=== PATIENT | male | born 1970 | race Caucasian/White ===

== ENCOUNTER 2017-02-05 13:17 | Emergency (ER) | payer BC ==
[~2017-02-05 13:17] MED LIST: BACTRIM DS1 TAB PO; BENADRYL25 MG; CLARITIN-D1 TAB.SR .; COLACE100 MG PO; COMPETE1 EACH PO; DEXAMETHASONE2 MG PO; ESZOPICLONE2 MG PO; KEPPRA500 MG PO; LAMICTAL100 M2 PO; PEPCID20 MG PO; PRAMIPEXOLE E0.75 MG PO; TEMODAR100 MG PO; TEMODAR140 MG PO; TROKENDI XR50 MG PO; WAL-PHED30 MG; ZANTAC150 MG PO; ZOFRAN8 MG PO
[2017-02-05] MEDS ORDERED: GINSENG100 M2 PO (13:49)
[2017-02-05] MEDS ORDERED: LAMICTAL200 M2 PO (14:01)
[2017-02-05] MEDS ORDERED: MOBIC7.5 M2 PO (14:01)
[2017-02-05 14:47] LABS: BASO % 0.7 % (0-2); EOS % 5.7 % (0-7); EOSINOPHIL ABSOLUTE COUNT 0.2 tho/cmm (0.0-0.7); HCT-HEMATOCRIT 32.5 % (36.0-53.5); IMMATURE GRANULOCYTES ABSOLUTE 0.02 tho/cmm (0-0.03); IMMATURE GRANULOCYTES PERCENT 0.5 % (0-0.3); LYMPH % 16.6 % (20-45); LYMPH ABSOLUTE COUNT 0.7 tho/cmm (0.8-4.5); MCH (MEAN CORPUSCULAR HGB) 30.3 pg (28.0-32.0); MCHC MEAN CORPUSCULAR HGB CONC 33.8 % (32.0-36.0); MCV (MEAN CELL VOLUME) 89.5 fl (82.0-96.0); MEAN PLATELET VOLUME 8.2 cmc (9.4-12.4); MONO % 8.5 % (0-12); MONOCYTE ABSOLUTE COUNT 0.4 tho/cmm (0.0-1.2); NEUTROPHIL ABSOLUTE COUNT 2.9 tho/cmm (1.6-8.0); NEUTROPHIL-AUTOMATED 2.9 tho/cmm (1.6-8.0); PLATELET COUNT 252 tho/cmm (150-450); RED BLOOD COUNT 3.63 mil/cmm (4.40-5.70); RED CELL DISTRIBUTION WIDTH 13.8 % (12.4-16.4); WHITE BLOOD COUNT 4.2 tho/cmm (4.0-10.0)
[2017-02-05 15:06] LABS: ALB/GLOB RATIO 1.1 (0.8-2.0); ALBUMIN 3.9 g/dl (3.5-5.0); ALKALINE PHOSPHATASE 79 U/L (33-138); ALT/SGPT 31 U/L (12-78); ANION GAP 10 mmol/L (0-20); AST/SGOT 19 U/L (10-40); BILIRUBIN,TOTAL 0.3 mg/dl (0.0-1.5); BLOOD UREA NITROGEN 16 mg/dl (6-24); CARBON DIOXIDE-VENOUS 28 mmol/L (22-32); CHLORIDE 111 mmol/l (96-110); CREATININE 1.11 mg/dl (0.60-1.30); GLUCOSE 93 mg/dL (70-110); POTASSIUM 4.3 mmol/L (3.7-5.1); SODIUM 145 mmol/L (135-145); eGFR VALUE FOR BLACK >90 mL/Min
[2017-02-05 15:06] LABS: URINE BILIRUBIN NEGATIVE (NEG); URINE BLOOD NEGATIVE (NEG); URINE GLUCOSE (UA) NEGATIVE (NEG); URINE KETONE NEGATIVE (NEG); URINE LEUKOCYTE ESTERASE NEGATIVE (NEG); URINE NITRITE NEGATIVE (NEG); URINE PH 6.5 (5.0-8.0); URINE PROTEIN NEGATIVE (NEG)
[2017-02-05 15:09] LABS: URINE APPEARANCE CLEAR; URINE COLOR YELLOW
[2017-02-05] MEDS ORDERED: DEXAMETHASONE2 M1 PO (16:40)
[2017-02-14] MEDS ORDERED: DEXAMETHASONE2 M1 PO (14:39)
[2017-02-14] MEDS ORDERED: [UNRECOGNIZED DRUG - REMARK] (15:11)
[2017-04-27] MEDS ORDERED: MOBIC7.5 M2 PO (01:49)
[2017-04-27] MEDS ORDERED: MIRAPEX0.125 M1 PO (01:50)
[2017-04-27] MEDS ORDERED: PROMETHAZINE12.5 M2 PO (01:50)
[2017-04-27] MEDS ORDERED: DEXAMETHASONE4 M1 PO (16:14)
[2017-05-03] MEDS ORDERED: DEXAMETHASONE2 M1 PO (10:02)
== END 2017-02-05 17:35 ==
LOC: EDMED 13:17
PROVIDERS: Emergency Medicine
DX: D49.6 Neoplasm of unspecified behavior of brain (principal); R53.1 Weakness; R41.0 Disorientation, unspecified; I10 Essential (primary) hypertension; G47.30 Sleep apnea, unspecified; Z85.46 Personal history of malignant neoplasm of prostate; Z79.899 Other long term (current) drug therapy
CPT/HCPCS: J7030

== ENCOUNTER 2017-02-17 14:53 | Day surgery (SDC) | payer BC ==
[~2017-02-17 14:53] MED LIST changes: +DEXAMETHASONE2 M1 PO; +GINSENG100 M2 PO; +LAMICTAL200 M2 PO; +MOBIC7.5 M2 PO; +[UNRECOGNIZED DRUG - REMARK]
[2017-02-18] MEDS ORDERED: NORCO 5-325 TA1 EACH PO (10:10)
[2017-02-18] MEDS ORDERED: TYLENOL325 M2 PO (10:10)
[2017-02-18] MEDS ORDERED: SENOKOT-S TABL1 EACH PO (10:12)
[2017-02-18] MEDS ORDERED: TROKENDI XR50 MG PO (10:13)
[2017-04-27] MEDS ORDERED: MOBIC7.5 M2 PO (01:49)
[2017-04-27] MEDS ORDERED: MIRAPEX0.125 M1 PO (01:50)
[2017-04-27] MEDS ORDERED: PROMETHAZINE12.5 M2 PO (01:50)
[2017-04-27] MEDS ORDERED: DEXAMETHASONE4 M1 PO (16:14)
[2017-05-03] MEDS ORDERED: DEXAMETHASONE2 M1 PO (10:02)
== END 2017-02-18 11:08 ==
LOC: SRG 14:53 → SHSB 14:54 → ORE 17:41 → PACU 19:26 → 5EB 20:40
PROC: 00B00ZX Excision of Brain, Open Approach, Diagnostic (ICD-10-PCS; principal; 2017-02-17)
DX: C71.1 Malignant neoplasm of frontal lobe (principal); E66.01 Morbid (severe) obesity due to excess calories; G40.909 Epilepsy, unspecified, not intractable, without status epilepticus; R42 Dizziness and giddiness; R53.1 Weakness; M17.9 Osteoarthritis of knee, unspecified; M19.011 Primary osteoarthritis, right shoulder; H91.90 Unspecified hearing loss, unspecified ear; G47.30 Sleep apnea, unspecified; K21.9 Gastro-esophageal reflux disease without esophagitis; Z79.899 Other long term (current) drug therapy; Z87.11 Personal history of peptic ulcer disease; Z85.46 Personal history of malignant neoplasm of prostate; Z90.79 Acquired absence of other genital organ(s); Z98.890 Other specified postprocedural states; Z99.89 Dependence on other enabling machines and devices
CPT/HCPCS: J0690; J2250; J7040